=== PATIENT | male | born 1960 | race Caucasian/White ===

== ENCOUNTER 2024-11-15 00:39 | Observation (INO) | payer BC ==
[2024-11-15] MEDS ORDERED: MORPHINE 2 MG/ML SYR IV PRN (00:52)
[2024-11-15] MEDS ORDERED: ACETAMINOPHEN 500 MG TAB PO PRN (00:52)
[2024-11-15] MEDS ORDERED: ONDANSETRON 4 MG/2 ML VIAL IV PRN (00:52)
[2024-11-15] MEDS ORDERED: MELATONIN 5 MG TABLET PO PRN (00:55)
[2024-11-15] MEDS ORDERED: HYDRALAZINE HCL 20 MG/ML VIAL IV PRN (00:55)
--- NOTE | 2024-11-15 01:15 | P.HP ---
Certification for Inpatient Patient admitted to: Observation With expected LOS: <2 Midnights Patient will require the following post-hospital care: None Practitioner: I am a practitioner with admitting privileges, knowledge of patient current condition, hospital course, and medical plan of care. Services: Services provided to patient in accordance with Admission requirements found in Title 42 Section 412.3 of the Code of Federal Regulations Patient History Date of Service: 11/15/24 Reason for admission: Chest pain History of Present Illness: 64-year-old male with past medical history of hypertension, hyperuricemia, HLD, BPH, recent chronic lower extremity lymphedema, follows with cardiology Dr. Gao states recent echo was unremarkable, no prior history of cardiac cath, who developed atypical left-sided chest pain this evening, radiating to both sides of the chest. He rates pain at its worst at about 6 out of 10. He admits to associated shortness of breath. He presented at the [facility] emergency room, vital signs at presentation were stable. EKG shows no ST segment changes with normal sinus rhythm at 62 bpm. Chest x-ray shows no pulmonary edema or pleural effusion. CT of the chest shows no evidence of pulmonary embolism. Ultrasound of the bilateral lower extremity shows no DVT. Laboratory workup was significant for normal troponin, WBC of 10.9 and creatinine of 1.4. Patient denies any dizziness or palpitation. He received Pepcid Lovenox aspirin and Plavix and was transferred here for further evaluation. Allergies No Known Allergies Allergy (Verified 02/19/15 08:10) Home Medications: Aspirin [Aspirin EC] 81 mg PO DAILY 02/19/15 Benazepril HCl [Lotensin] 40 mg PO DAILY AT SUPPER 02/19/15 Doxazosin [Cardura] 4 mg PO BID 02/19/15 Doxycycline Hyclate 100 mg PO DAILY 02/19/15 Furosemide [Lasix] 40 mg PO DAILY 02/19/15 Rosuvastatin [Crestor] 20 mg PO BEDTIME 02/19/15 Sulfamethoxazole/Trimethoprim [Bactrim Ds Tablet] 1 each PO BID 02/19/15 allopurinoL [Zyloprim] 300 mg PO DAILY 02/19/15 - Past Medical/Surgical History -: Hypertension -: Hyperlipidemia -: Hyperuricemia -: BPH -: Chronic lower extremity lymphedema -: Back surgery -: Neck surgery -: Tonsillectomy - Family History Family History: Reviewed- Non-Contributory - Social History Smoking Status: Never smoker Smoking therapy provided: No Patient receptive to therapy: No Alcohol use: No CD- Drugs: No Caffeine use: No Place of Residence: Home Review of Systems Cardiovascular: Chest Pain Physical Examination - Physical Exam General: In no apparent distress, Oriented x3, Obese HEENT: Atraumatic, Normocephalic, PERRLA Neck: 2+ carotid pulse no bruit, JVD not distended Respiratory: Clear to auscultation bilaterally, Normal air movement Cardiovascular: Normal pulses, Regular rate/rhythm, Normal S1 S2, Other (Mild reproducible left parasternal chest tenderness), Edema Gastrointestinal: Normal bowel sounds, Soft and benign, Non-distended, No tenderness, No masses Musculoskeletal: No clubbing, Swelling (2+ bilateral chronic lymphedema no calf tenderness) Integumentary: No breakdown, No significant lesion Neurological: Normal speech, Normal strength at 5/5 x4 extr, Sensation intact, Cranial nerves 3-12 intact Assessment and Plan - Problems (Diagnosis) (1) Chest pain Current Visit: Yes Status: Acute (2) Gout Current Visit: No Status: Acute (3) Hypertension Current Visit: No Status: Acute - Plan Impression Atypical chest pain Hypertension History of BPH HLD History of chronic lymphedema Plan We admit patient to telemetry Place in observation Cardiology consult with Dr. Gao Low suspicion for acute coronary syndrome, suspected musculoskeletal in pattern Start aspirin and Plavix Since Doppler of lower extremities as well as CTA of the chest were negative, no suspicion for thromboembolism Continue low-dose Lasix Will add Nitropatch now 60 residual chest pain Continue serial set of troponin Resume home BP regimen Lipid panel in a.m. Continue atorvastatin Continue subcutaneous Lovenox for DVT prophylaxis Continue lower extremity wraps Full code Total time spent in evaluation discussion with patient greater than 70 minutes - Advance Directives Does patient have a Living Will: No Does patient have a Durable POA for Healthcare: No
[2024-11-15 01:19] VITALS: BMI 44.9
[2024-11-15] MEDS: NITROGLYCERIN 0.2 MG/HR (5 MG) PATCH TD SCH (02:24)
[2024-11-15] MEDS: CLOPIDOGREL 75 MG TABLET PO SCH (02:24)
[2024-11-15 04:03] LABS: Absolute Lymphocytes (CBC) 1.5 K/uL (0.7-4.9); Hematocrit 38.4 % (39.6-49.0); Hemoglobin 12.8 g/dL (13.6-17.9); MCH 28.7 pg (27.0-35.0); MCHC 33.4 g/dL (32.0-36.0); MCV 85.8 fL (80-100); MPV 10.3 fL (7.6-11.3); Nucleated RBC Absolute Count 0.0 (0-0); Nucleated Red Blood Cells % 0.1 % (0-0); RBC Red Blood Cell Count 4.48 M/uL (4.33-5.43); White Blood Count 9.00 thou/uL (4.3-10.9)
[2024-11-15 04:18] LABS: ALT/SGPT 27.0 U/L (16-61); AST/SGOT 34.0 U/L (15-37); Albumin 3.7 g/dL (3.4-5.0); Albumin/Globulin Ratio 1.0 (1.1-1.8); Alkaline Phosphatase 99.0 U/L (45-117); Anion Gap 11.5 mEq/L (5.0-15.0); BUN Blood Urea Nitrogen 19.0 mg/dL (7-18); Bilirubin Indirect, Calculated 1.6 mg/dL (0.2-0.8); Globulin 3.6 g/dL (2.3-3.5); Glucose Level 103.0 mg/dL (74-106); Potassium 3.5 mEq/L (3.5-5.1); Troponin High Sensitivity 5.9 pg/mL (<58.9)
[2024-11-15 08:31] VITALS: BP 151/57; TEMP 97.6
[2024-11-15] MEDS: ASPIRIN EC 81 MG TAB PO SCH (08:58)
[2024-11-15] MEDS: ENOXAPARIN 40 MG/0.4 ML SQ SCH (09:00)
--- NOTE | 2024-11-15 09:01 | P.DS ---
Admission Date: 11/15/24 Discharge Date: 11/15/24 Disposition: ROUTINE DISCHARGE Reason for Admission: Chest pain Brief History of Present Illness: 64-year-old male with past medical history of hypertension, hyperuricemia, HLD, BPH, chronic lower extremity lymphedema, follows with cardiology Dr. Gao recent unremarkable echo, presented with a complaint of left-sided chest pain, radiating to both sides of the chest, associated with shortness of breath. He presented at the [facility] emergency room where EKG showed no ST segment changes with normal sinus rhythm at 62 bpm. Chest x-ray showed no pulmonary edema or pleural effusion. CT of the chest showed no evidence of pulmonary embolism. Ultrasound of the bilateral lower extremity showed no DVT. He received Pepcid, Lovenox, aspirin and Plavix and was transferred here for further evaluation. Hospital Course: Diagnosis Atypical chest pain Hypertension History of BPH HLD History of chronic lymphedema Patient placed under observation on the medical floor, troponin trended negative. Patient reported recent history of low BP recordings at home. Patient is on multiple antihypertensives including amlodipine, doxazosin and Benzapril. She states that the amlodipine caused increased lower extremity swelling and the dose was cut into half, from 10 mg to 5 mg however he stopped taking the amlodipine altogether. Patient also reported his blood pressure was recently in the 90s and was experiencing lightheadedness and dizziness and a feeling of passing out. Patient evaluated by cardiology Dr. Segovia who recommended only Benzapril for blood pressure control. Patient Lasix also decreased from 40 mg twice a day to 40 mg daily per cardiology recommendation. Patient informed of these medication changes and he voiced understanding. Patient deemed stable for discharge per Dr. Segovia. Dr. Segovia plans to follow-up with patient in the office for further evaluation. Vital Signs/Physical Exam: Temp Pulse Resp BP Pulse Ox 97.6 F 78 18 151/57 H 95 11/15/24 08:00 11/15/24 08:00 11/15/24 08:00 11/15/24 08:00 11/15/24 08:00 General: Alert, In no apparent distress, Oriented x3 HEENT: Mucous membr. moist/pink Neck: Supple, JVD not distended Respiratory: Clear to auscultation bilaterally, Normal air movement Cardiovascular: Regular rate/rhythm, Normal S1 S2, Edema (Bilateral lower extremity edema) Gastrointestinal: Normal bowel sounds, Soft and benign, Non-distended Integumentary: No cyanosis Neurological: Normal strength at 5/5 x4 extr Laboratory Data at Discharge: WBC 9.00 thou/uL (4.3-10.9) 11/15/24 02:57 Hgb 12.8 g/dL (13.6-17.9) L 11/15/24 02:57 Hct 38.4 % (39.6-49.0) L 11/15/24 02:57 Plt Count 183 thou/uL (152-406) 11/15/24 02:57 APTT 38.6 SECONDS (27.2-37.4) H 11/15/24 02:57 Sodium 141 mEq/L (136-145) 11/15/24 02:57 Potassium 3.5 mEq/L (3.5-5.1) 11/15/24 02:57 BUN 19 mg/dL (7-18) H 11/15/24 02:57 Creatinine 1.11 mg/dL (0.70-1.30) 11/15/24 02:57 Glucose 103 mg/dL (74-106) 11/15/24 02:57 Total Bilirubin 2.0 mg/dL (0.2-1.0) H 11/15/24 02:57 AST 34 U/L (15-37) 11/15/24 02:57 ALT 27 U/L (16-61) 11/15/24 02:57 Alkaline Phosphatase 99 U/L (45-117) 11/15/24 02:57 Home Medications: Aspirin [Aspirin EC 81 MG] 81 mg PO DAILY 02/19/15 Benazepril HCl [Lotensin] 40 mg PO DAILY AT SUPPER 02/19/15 Doxycycline Hyclate 100 mg PO DAILY 02/19/15 Sulfamethoxazole/Trimethoprim [Bactrim Ds 800-160 mg Tablet] 1 each PO BID 02/19/15 allopurinoL [Zyloprim*] 300 mg PO DAILY 02/19/15 Furosemide [Lasix*] 40 mg PO DAILY #30 tab 11/15/24 Rosuvastatin [Crestor*] 20 mg PO BEDTIME tab 11/15/24 Silodosin [Rapaflo] 1 tab PO DAILY 11/15/24 New Medications: Furosemide [Lasix*] 40 mg PO DAILY #30 tab Followup: Ric Segovia MD [ACTIVE - CAN ADMIT] - 1 Week NONE,NONE [Primary Care Provider] - Time spent managing pt's care (in minutes): 32
[2024-11-15 09:35] VITALS: O2SAT 95
--- NOTE | 2024-11-15 10:24 | P.CNS ---
Date of Consult: 11/15/24 Chief Complaint: Chest pain History of Present Illness: Patient with PMH of HTN, Lymphedema, presented with low BP, chest pain, denies palpitations, no syncope, report mid sternal sharp pain, no radiation. Allergies No Known Allergies Allergy (Verified 02/19/15 08:10) Home medications list reviewed: Yes Home Medications: Aspirin [Aspirin EC 81 MG] 81 mg PO DAILY 02/19/15 Benazepril HCl [Lotensin] 40 mg PO DAILY AT SUPPER 02/19/15 Doxycycline Hyclate 100 mg PO DAILY 02/19/15 Sulfamethoxazole/Trimethoprim [Bactrim Ds 800-160 mg Tablet] 1 each PO BID 02/19/15 allopurinoL [Zyloprim*] 300 mg PO DAILY 02/19/15 Furosemide [Lasix*] 40 mg PO DAILY #30 tab 11/15/24 Rosuvastatin [Crestor*] 20 mg PO BEDTIME tab 11/15/24 Silodosin [Rapaflo] 1 tab PO DAILY 11/15/24 - Past Medical/Surgical History -: Hypertension -: Hyperlipidemia -: Hyperuricemia -: BPH -: Chronic lower extremity lymphedema -: Back surgery -: Neck surgery -: Tonsillectomy - Social History Alcohol use: No CD- Drugs: No Caffeine use: No Place of Residence: Home Review of Systems 10-point ROS is otherwise unremarkable Physical Examination Temp Pulse Resp BP Pulse Ox 97.6 F 78 18 151/57 H 95 11/15/24 08:00 11/15/24 08:00 11/15/24 08:00 11/15/24 08:00 11/15/24 08:00 General: Alert, In no apparent distress HEENT: Atraumatic, PERRLA, Mucous membr. moist/pink, EOMI, Sclerae nonicteric Neck: Supple, 2+ carotid pulse no bruit, No LAD, Without JVD or thyroid abnormality Respiratory: Clear to auscultation bilaterally, Normal air movement Cardiovascular: Regular rate/rhythm, Normal S1 S2 Gastrointestinal: Normal bowel sounds, No tenderness Musculoskeletal: No tenderness Integumentary: No rashes Neurological: Normal gait, Normal speech, Normal tone, Normal affect Lymphatics: No axilla or inguinal lymphadenopathy Laboratory Data (last 24 hrs) 11/15/24 11/15/24 11/15/24 02:57 02:57 02:57 WBC 9.00 Hgb 12.8 L Hct 38.4 L Plt Count 183 APTT 38.6 H Sodium 141 Potassium 3.5 BUN 19 H Creatinine 1.11 Glucose 103 Total Bilirubin 2.0 H AST 34 ALT 27 Alkaline Phosphatase 99 - Problems (1) Chest pain Current Visit: Yes Status: Acute Plan: Troponin negative with no significant EKG changes, looks like MSK in origin No further inpatient cardiac work up needed keep scheduled Echo and stress test as outpatient. (2) Hypertension Current Visit: No Status: Acute Plan: BP has been running low advised to continue Benzapril 40 mg daily lower down lasix to 40 mg daily hold Norvasc and Doxazosin until seen in office with BP log.
[2024-11-15] MEDS ORDERED: ROSUVASTATIN 10 MG TAB PO SCH (21:00)
== END 2024-11-15 10:15 | disposition home or self-care (01) ==
LOC: 4TH 00:39
PROVIDERS: ADMIT Internal Medicine; ATTEND Internal Medicine
DX: R07.89 Other chest pain (principal); I10 Essential (primary) hypertension; E78.5 Hyperlipidemia, unspecified; N40.0 Benign prostatic hyperplasia without lower urinary tract symptoms; R06.02 Shortness of breath; Z79.82 Long term (current) use of aspirin; M10.9 Gout, unspecified
CPT/HCPCS: 85025; 36415; 82947; 85730; 82248; 84484; 80053; G0378 ×2; J1650